=== PATIENT | female | born 1960 | race Caucasian/White ===

== ENCOUNTER → 2016-11-21 | Outpatient (CLI) | payer BC ==
[~2016-11-21] MED LIST: ALLOPURINOL300 MG PO; AMLOPIDINE PO; BCP TD; CALTRATE 600600 MG PO; DIOVAN160 MG PO; DIOVAN320 MG PO; EXFORGE 5/160 PO; EXFORGE PO; GLUCOSAMINE & C1 CA1 PO; LABETALOL PO; MULTIPLE VITAMI1 CAP PO; NORMODYNE100 MG PO; NORVASC 5MG5 MG/TAB PO; TEKTURNA HCT PO; TEKTURNA PO; UROCIT K PO; UROCIT-K 5540 MG/TAB PO; VITAMIN D1000 IU PO; ZYLOPRIM 300MG300 MG PO
== END ==
LOC: COL.RAD 08:00
DX: N20.1 Calculus of ureter (principal); N28.89 Other specified disorders of kidney and ureter

== ENCOUNTER 2016-11-25 11:59 | Day surgery (SDC) | payer BC ==
[~2016-11-25] VITALS: Ht 157.5 cm; Wt 68.4 kg
[~2016-11-25 11:59] MED LIST changes: -VITAMIN D1000 IU PO
[2016-11-25] MEDS ORDERED: VITAMIN D1000 IU PO (12:26)
[2016-11-25 13:01] VITALS: BP 133/85; PULSE 74; TEMP 97
[2016-11-25 15:55] VITALS: BP 127/75; PULSE 69; TEMP 97.9
[2016-11-25 16:10] VITALS: BP 122/72; PULSE 63
[2016-11-25 16:25] VITALS: BP 113/73; PULSE 65
[2016-11-25 16:40] VITALS: BP 120/66; PULSE 70
== END 2016-11-25 16:55 | disposition home or self-care (01) ==
LOC: SDCO 11:59
DX: N20.1 Calculus of ureter (principal); I10 Essential (primary) hypertension; Z98.1 Arthrodesis status; Z82.49 Family history of ischemic heart disease and other diseases of the circulatory system; Z80.8 Family history of malignant neoplasm of other organs or systems
CPT/HCPCS: C1769; C2617; J0690; J1100; J1885; J2405; J2704; J3010

== ENCOUNTER → 2017-05-27 | Outpatient (CLI) | payer BC ==
[~2017-05-27] MED LIST changes: +VITAMIN D1000 IU PO
== END ==
LOC: MC.RAD 09:00
DX: Z12.31 Encounter for screening mammogram for malignant neoplasm of breast (principal)

== ENCOUNTER → 2018-06-03 | Outpatient (CLI) | payer BC | LOC: MC.RAD 07:36 | DX: Z12.31 Encounter for screening mammogram for malignant neoplasm of breast (principal) ==

== ENCOUNTER → 2019-06-21 | Outpatient (CLI) | payer BC | LOC: MC.RAD 06:55 | DX: Z12.31 Encounter for screening mammogram for malignant neoplasm of breast (principal) ==

== ENCOUNTER 2020-03-10 11:00 | Emergency (ER) | payer BC ==
[~2020-03-10] VITALS: Ht 154.9 cm; Wt 60.9 kg
[2020-03-10 11:10] VITALS: TEMP 100.6
[2020-03-10 12:41] LABS: BASO % 0.3 % (0.0-2.0); GRAN # 2.3 (1.4-6.5); GRAN % 70.3 % (42.2-75.2); HEMATOCRIT 39.7 % (37.0-47.0); HEMOGLOBIN 13.1 g/dl (12.5-16.0); LYMPH # 0.6 (1.2-3.4); MEAN CELL VOLUME 93 fl (80.0-100.0); MEAN CORPUSCULAR HEMOGLOBIN 31 pg (27.0-31.0); MEAN CORPUSCULAR HGB CONC 33 g/dl (33.0-37.0); MEAN PLATELET VOLUME 9.1 fl (7.4-10.4); MONO # 0.4 (0.1-0.6); MONO % 11.1 % (1.7-9.3); PLATELET COUNT 227 K/mm3 (130-400); RED BLOOD COUNT 4.25 M/mm3 (4.10-5.30)
[2020-03-10 12:49] LABS: ALBUMIN 4.6 gm/dL (3.5-5.0); BILIRUBIN,TOTAL 0.6 mg/dL (0.0-1.0); C-REACTIVE PROTEIN 1.1 mg/dL (0.0-0.9); CALCIUM 9.4 mg/dL (8.4-10.2); CREATININE, serum 0.78 (0.52-1.25); POTASSIUM 3.8 mmol/L (3.4-5.0); TOTAL PROTEIN 8.4 gm/dL (6.4-8.2)
[2020-03-10 13:41] LABS: COLLECTION METHOD CLEAN CATCH
[2020-03-10 13:48] LABS: PH 6 (5-8); SQUAMOUS EPITHELIAL 0-2 /hpf; URINE APPEARANCE Clear; URINE BACTERIA None Seen /hpf; URINE BILIRUBIN Negative (NEGATIVE); URINE BLOOD Negative (NEGATIVE); URINE COLOR Yellow; URINE GLUCOSE Negative (NEGATIVE); URINE KETONE 1+ (NEGATIVE); URINE LEUKOCYTE ESTERASE Negative (NEGATIVE); URINE NITRATE Negative (NEGATIVE); URINE PROTEIN(semi-quant) Negative (NEGATIVE); URINE RBC 0-2 /hpf; URINE UROBILINOGEN Negative (NEGATIVE)
[2020-03-10] MEDS ORDERED: ZOFRAN ODT4 MG PO (14:41)
[2020-03-10 15:00] VITALS: BP 125/78; PULSE 81
== END 2020-03-10 15:00 | disposition home or self-care (01) ==
LOC: COL.ER 11:00
PROVIDERS: Physician Assistant
DX: U07.1 COVID-19 (principal); I12.9 Hypertensive chronic kidney disease with stage 1 through stage 4 chronic kidney disease, or unspecified chronic kidney disease; N20.0 Calculus of kidney; E78.5 Hyperlipidemia, unspecified; N18.9 Chronic kidney disease, unspecified
CPT/HCPCS: J2405; J7030

== ENCOUNTER → 2020-06-22 | Outpatient (CLI) | payer BC ==
[~2020-06-22] MED LIST changes: +ZOFRAN ODT4 MG PO
== END ==
LOC: MC.RAD 06:59
DX: Z12.31 Encounter for screening mammogram for malignant neoplasm of breast (principal)

== ENCOUNTER 2021-02-14 08:59 | Day surgery (SDC) | payer BC ==
[~2021-02-14] VITALS: Ht 154.9 cm; Wt 67.2 kg
[2021-02-14] MEDS ORDERED: COZAAR 50MG50 MG/TAB PO (09:34)
[2021-02-14] MEDS ORDERED: HCTZ12.5TAB PO (09:35)
[2021-02-14 09:45] VITALS: BP 119/81; PULSE 86; TEMP 99.8
[2021-02-14 10:15] VITALS: BP 118/72; PULSE 80; TEMP 98
--- NOTE | 2021-02-14 10:15 | NUR ---
Pt returned to room via cart. Alert and oriented. Postop vitals started. Water and crackers provided. Will continue to monitor.
--- NOTE | 2021-02-14 10:20 | NUR ---
Dr. pritchard to speak with patient.
[2021-02-14 10:30] VITALS: BP 116/81; PULSE 75
--- NOTE | 2021-02-14 10:30 | NUR ---
Pt sitting up in chair. Alert and oriented. Tolerating food and drink, C/O belching. Educated about procedure causing gas is normal and advised ways to help relieve gas and symptoms, verbalized understanding.
--- NOTE | 2021-02-14 10:36 | NUR ---
D/C IV with no complications.
[2021-02-14 10:45] VITALS: BP 115/80; PULSE 72
--- NOTE | 2021-02-14 10:45 | NUR ---
Pt sitting up in chair. alert and oriented. Vitals stable. Reviewed discharge instruction, verbalized understand. Instructed to dress and open door when ready to transport.
--- NOTE | 2021-02-14 11:05 | NUR ---
Transported pt via wheelchair to personal vehicle.
== END 2021-02-14 11:05 | disposition home or self-care (01) ==
LOC: SDCO 08:59
DX: Z12.11 Encounter for screening for malignant neoplasm of colon (principal); K64.0 First degree hemorrhoids; I10 Essential (primary) hypertension; E78.5 Hyperlipidemia, unspecified; K21.9 Gastro-esophageal reflux disease without esophagitis; Z20.822 Contact with and (suspected) exposure to COVID-19; Z79.899 Other long term (current) drug therapy; Z85.828 Personal history of other malignant neoplasm of skin
CPT/HCPCS: J2405; J2704; J7030

== ENCOUNTER → 2021-07-26 | Outpatient (CLI) | payer BC ==
[~2021-07-26] MED LIST changes: +COZAAR 50MG50 MG/TAB PO; +HCTZ12.5TAB PO
== END ==
LOC: MC.RAD 07:26
DX: Z12.31 Encounter for screening mammogram for malignant neoplasm of breast (principal)

== ENCOUNTER 2022-07-09 09:37 | Emergency (ER) | payer BC ==
[~2022-07-09] VITALS: Ht 157.5 cm; Wt 65.9 kg
[2022-07-09 09:43] VITALS: TEMP 98.1
[2022-07-09 10:19] LABS: BASO % 0.6 % (0.0-2.0); EOS # 0.1 K/mm3 (0.0-0.7); EOS % 1.7 % (0.0-4.0); GRAN # 3.4 K/mm3 (1.4-6.5); GRAN % 49.2 % (42.2-75.2); HEMATOCRIT 39.7 % (37.0-47.0); LYMPH # 2.7 K/mm3 (1.2-3.4); LYMPH % 39.4 % (20.0-51.0); MEAN CELL VOLUME 95 fl (80.0-100.0); MEAN CORPUSCULAR HEMOGLOBIN 31 pg (27-31); MEAN CORPUSCULAR HGB CONC 33 g/dl (33.0-37.0); MEAN PLATELET VOLUME 8.6 fl (7.4-10.4); MONO # 0.6 K/mm3 (0.1-0.6); PLATELET COUNT 264 K/mm3 (130-400); RED BLOOD COUNT 4.16 M/mm3 (4.10-5.30); REDCELL DISTRIBUTION WIDTH-CV 13.2 % (11.5-14.5)
[2022-07-09 10:36] LABS: ALBUMIN 4.1 gm/dL (3.4-4.8); BILIRUBIN,TOTAL 0.7 mg/dL (0.2-1.2); CALCIUM 9.6 mg/dL (8.4-10.2); CREATININE, serum 0.77 mg/dL (0.57-1.11); POTASSIUM 3.5 mmol/L (3.5-4.5); TOTAL PROTEIN 8.1 gm/dL (6.2-8.1)
[2022-07-09 10:43] LABS: TROPONIN-I 0.01 ng/mL (0.00-0.033)
[2022-07-09 11:22] VITALS: BP 143/95; PULSE 74
== END 2022-07-09 11:22 | disposition home or self-care (01) ==
LOC: COL.ER 09:37
PROVIDERS: Physician Assistant
DX: R07.89 Other chest pain (principal); K44.9 Diaphragmatic hernia without obstruction or gangrene; J98.11 Atelectasis
CPT/HCPCS: J1885

== ENCOUNTER → 2023-07-31 | Outpatient (CLI) | payer BC | LOC: MC.RAD 07:10 | DX: Z12.31 Encounter for screening mammogram for malignant neoplasm of breast (principal) ==

== ENCOUNTER 2024-01-29 11:00 | Emergency (ER) | payer MEDICARE, BC ==
[~2024-01-29] VITALS: Ht 157.5 cm; Wt 67.3 kg
[2024-01-29 11:19] VITALS: BP 119/86; TEMP 98.4
[2024-01-29] MEDS ORDERED: NORCO 325 MG-51 TAB PO (13:06)
[2024-01-29 13:17] VITALS: PULSE 77
== END 2024-01-29 13:19 | disposition home or self-care (01) ==
LOC: COL.ER 11:00
DX: S82.142A Displaced bicondylar fracture of left tibia, initial encounter for closed fracture (principal); W19.XXXA Unspecified fall, initial encounter; Y92.89 Other specified places as the place of occurrence of the external cause; Y99.0 Civilian activity done for income or pay